=== PATIENT | female | born 2000 | race Caucasian/White ===

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

== ENCOUNTER → 2018-10-12 | Emergency (ER) | payer MEDICAID ==
[~2018-10-12] VITALS: Ht 165.1 cm; Wt 80.5 kg
[~2018-10-12] MED LIST changes: +MECLOFENAMATE100 MG PO; +MOTRIN 800800 MG/TAB PO; +NORCO 325 MG-51 TAB PO; +PERCOCET 325 MG1 TA2 PO; +ZOLOFT 50MG50 MG PO
[2018-10-12 08:33] VITALS: BP 115/73; PULSE 89; TEMP 97.6
[2018-10-12 09:30] LABS: BASO % 0.4 % (0.0-2.0); EOS # 0.1 (0.0-0.7); EOS % 1.5 % (0-4.0); GRAN # 5.4 (1.4-6.5); GRAN % 74.7 % (42.2-75.2); HEMATOCRIT 38.7 % (35.0-45.0); HEMOGLOBIN 13.1 g/dl (12.0-15.0); LYMPH # 1.2 (1.2-3.4); LYMPH % 16.5 % (20.0-51.0); MEAN CELL VOLUME 87 fl (80.0-95.0); MEAN CORPUSCULAR HEMOGLOBIN 29 pg (26.0-32.0); MEAN CORPUSCULAR HGB CONC 34 g/dl (33.0-37.0); MEAN PLATELET VOLUME 10.2 fl (7.4-10.4); MONO # 0.5 (0.1-0.6); MONO % 6.3 % (1.7-9.3); PLATELET COUNT 246 K/mm3 (130-400); RED BLOOD COUNT 4.46 M/mm3 (4.10-5.30); REDCELL DISTRIBUTION WIDTH-CV 12.9 % (11.5-14.5)
[2018-10-12 09:38] LABS: COLLECTION METHOD CLEAN CATCH
[2018-10-12 09:39] LABS: ALBUMIN 4.5 gm/dL (3.5-5.0); BILIRUBIN,TOTAL 0.9 mg/dL (0.0-1.0); CALCIUM 9.9 mg/dL (8.4-10.2); CREATININE, serum 0.66 mg/dL (0.52-1.25); POTASSIUM 4.6 mmol/L (3.4-5.0); TOTAL PROTEIN 8.2 gm/dL (6.4-8.2)
[2018-10-12 09:44] LABS: MUCOUS Present /lpf; PH 6 (5-8); SQUAMOUS EPITHELIAL 0-2 /hpf; URINE APPEARANCE Clear; URINE BACTERIA Rare /hpf; URINE BILIRUBIN Negative (NEGATIVE); URINE BLOOD Negative (NEGATIVE); URINE COLOR Straw; URINE GLUCOSE Negative (NEGATIVE); URINE KETONE Negative (NEGATIVE); URINE LEUKOCYTE ESTERASE Negative (NEGATIVE); URINE NITRATE Negative (NEGATIVE); URINE PROTEIN(semi-quant) Negative (NEGATIVE); URINE RBC 0-2 /hpf; URINE UROBILINOGEN Negative (NEGATIVE)
[2018-10-12 09:51] LABS: HCG-QUALITATIVE URINE NEGATIVE
[2018-10-12 09:56] LABS: STREP SCREEN NEGATIVE
== END ==
LOC: COL.ER 08:20 → EDBEDREQ 08:48
PROVIDERS: Physician Assistant
DX: N83.202 Unspecified ovarian cyst, left side (principal); N76.0 Acute vaginitis; Z88.0 Allergy status to penicillin
CPT/HCPCS: J1885

== ENCOUNTER 2019-06-08 22:08 | Emergency (ER) | payer MEDICAID ==
[~2019-06-08] VITALS: Ht 165.1 cm; Wt 80.5 kg
[2019-06-08 22:18] VITALS: BP 143/80; PULSE 95; TEMP 98
== END 2019-06-08 23:47 | disposition left against medical advice (07) ==
LOC: COL.ER 22:08
DX: N94.9 Unspecified condition associated with female genital organs and menstrual cycle (principal)

== ENCOUNTER 2020-01-11 13:03 | Emergency (ER) | payer MEDICAID ==
[~2020-01-11] VITALS: Ht 165.1 cm; Wt 77.3 kg
[2020-01-11 13:11] VITALS: BP 113/62; TEMP 98.1
[2020-01-11 13:34] LABS: COLLECTION METHOD CLEAN CATCH
[2020-01-11 13:47] LABS: PH 8 (5-8); SQUAMOUS EPITHELIAL 0-2 /hpf; URINE APPEARANCE Clear; URINE BACTERIA None Seen /hpf; URINE BILIRUBIN Negative (NEGATIVE); URINE BLOOD Negative (NEGATIVE); URINE COLOR Straw; URINE GLUCOSE Negative (NEGATIVE); URINE KETONE Trace (NEGATIVE); URINE LEUKOCYTE ESTERASE Negative (NEGATIVE); URINE NITRATE Negative (NEGATIVE); URINE PROTEIN(semi-quant) Negative (NEGATIVE); URINE RBC None Seen /hpf; URINE UROBILINOGEN Negative (NEGATIVE)
[2020-01-11 15:52] VITALS: PULSE 82
== END 2020-01-11 15:51 | disposition home or self-care (01) ==
LOC: COL.ER 13:03
PROVIDERS: Emergency Medicine
DX: S70.01XA Contusion of right hip, initial encounter (principal); R40.2412 Glasgow coma scale score 13-15, at arrival to emergency department; Z88.0 Allergy status to penicillin; V43.52XA Car driver injured in collision with other type car in traffic accident, initial encounter

== ENCOUNTER 2020-06-05 20:08 | Outpatient (CLI) | payer MEDICAID ==
[~2020-06-05] VITALS: Ht 162.6 cm; Wt 87.3 kg
[2020-06-05] VITALS (7 sets, daily range): BP systolic 102–108; BP diastolic 55–68; PULSE 80–107; TEMP 97.9
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
[2020-06-05] MEDS ORDERED: PRENATAL TABLET PO (21:42)
--- NOTE | 2020-06-05 23:10 | NUR ---
Discharge instructions reviewed with pt. Questions invited and answered. ambulatory off unit.
== END 2020-06-05 23:15 | disposition home or self-care (01) ==
LOC: LDR 20:08 → COL.ER 20:08 → LDRO 20:08 → EDSTATUS 20:18 → LDRO 23:15
DX: O9A.213 Injury, poisoning and certain other consequences of external causes complicating pregnancy, third trimester (principal); Z3A.36 36 weeks gestation of pregnancy; Z91.5 Personal history of self-harm
CPT/HCPCS: OP

== ENCOUNTER → 2020-06-19 | Outpatient (CLI) | payer MEDICAID ==
[~2020-06-19] MED LIST changes: +CEPHALEXIN500 M1 PO; +IBU800 M1 PO; +PRENATAL TABLET PO
== END ==
LOC: COL.LAB 08:45
DX: Z20.828 Contact with and (suspected) exposure to other viral communicable diseases (principal)

== ENCOUNTER 2020-06-22 07:07 | Inpatient (IN) | payer MEDICAID ==
[~2020-06-22] VITALS: Ht 162.6 cm; Wt 88.2 kg
[2020-06-22] VITALS (36 sets, daily range): BP systolic 73–123; BP diastolic 37–73; PULSE 63–113; TEMP 97.4–98.2
[~2020-06-22 07:07] MED LIST changes: -CEPHALEXIN500 M1 PO; -IBU800 M1 PO
--- NOTE | 2020-06-22 07:10 | NUR ---
Pt arrives on unit ambulatory with mother for IOL. Changed into clean gown. EFM and toco applied. VSS. Denies vaginal bleeding, LOF, regular ctx and reports GFM. Admission assessment completed. Consents signed. IV started in LW. Labs drawn LR infusing. Oriented to room and POC. Bed locked in low position. Call light within reach. No questions or concerns at this time.
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
[2020-06-22 08:02] LABS: BASO % 0.3 % (0.0-2.0); EOS # 0.1 (0.0-0.7); EOS % 0.4 % (0-4.0); GRAN # 8.3 (1.4-6.5); GRAN % 74.4 % (42.2-75.2); HEMOGLOBIN 11.6 g/dl (12.5-16.0); LYMPH # 2.2 (1.2-3.4); LYMPH % 19.7 % (20.0-51.0); MEAN CELL VOLUME 89 fl (80.0-100.0); MEAN CORPUSCULAR HEMOGLOBIN 30 pg (27.0-31.0); MEAN CORPUSCULAR HGB CONC 34 g/dl (33.0-37.0); MEAN PLATELET VOLUME 10.8 fl (7.4-10.4); MONO # 0.4 (0.1-0.6); MONO % 3.9 % (1.7-9.3); PLATELET COUNT 238 K/mm3 (130-400); RED BLOOD COUNT 3.83 M/mm3 (4.10-5.30)
[2020-06-22 08:20] LABS: TRICYCLIC ANTIDEPRESS URINE NEGATIVE
[2020-06-22 08:27] LABS: HEMATOCRIT 34.1 % (37.0-47.0)
--- NOTE | 2020-06-22 08:30 | NUR ---
DR TAMAYO IN AT 0828 TO CHECK ON PT AND REVIEW PLAN OF CARE. PT WANTING EPIDURAL. YENNY OSMAN CRNA, IN AT [address] EPIDURAL.
--- NOTE | 2020-06-22 08:45 | NUR ---
PT SITTING UP FOR EPIDURAL PLACEMENT. TEST DOSE AT 0840 WITH NO ABNORMAL SYMPTOMS REPORTED. PT REPOSITIONED LYING DOWN AFTER EPDIURAL PLACEMENT BY Nina OSMAN CRNA.
--- NOTE | 2020-06-22 09:00 | NUR ---
PT REPORTS SHE IS FEELING LIKE SHE IS GOING TO FAINT, BP DOWN TO 73/37, HEAD OF BED LOWERED, FLUID BOLUS STARTED.
--- NOTE | 2020-06-22 09:15 | NUR ---
EPHEDRINE 10MG GIVEN AT 09 FOR BLOOD PRESSURE, DR TAMAYO IN AT 09-SVE /-1. DR TAMAYO ORDERS PITOCIN TO BE RESTARTED AT 2MU-STARTED AT 09
--- NOTE | 2020-06-22 10:15 | NUR ---
ALEJO CATHETER PLACED AT 1007, SVE 5/-1, PT REPOSITIONED, PITOCIN TO 6MU, FHT'S WITH MODERATE VARIABILITY AND ACCELS.
--- NOTE | 2020-06-22 10:32 | NUR ---
FHT'S WITH LATE DECELERATION AFTER REPOSITIONING SO REPOSITIONED BACK TO WEDGE LEFT. CONTRACTIONS VERY DIFFICULT TO MONITOR DESPITE NUMEROUS ATTEMPTS AT REPOSITIONING TOCO MONITOR.
--- NOTE | 2020-06-22 11:45 | NUR ---
DR TAMAYO CALLED TO CHECK ON PT. PT REPORTS FEELING MORE PAIN WITH CONTRACTIONS-WILL NOTIFY NUTRITION PROFESSOR.
--- NOTE | 2020-06-22 13:00 | NUR ---
DR TAMAYO HERE AT 1248: SVE 0. PT REPOSITIONED WITH PEANUT BALL PER DR TAMAYO.
--- NOTE | 2020-06-22 13:45 | NUR ---
DR TAMAYO IN AT 1333, SVE , PT REPOSITIONED TO RIGHT SIDE WITH PEANUT BALL-FHT'S DROP WITH POSITION CHANGE, PT REPOSITIONED BACK TO LEFT SIDE WITH PEANUT BALL.
--- NOTE | 2020-06-22 14:31 | NUR ---
FHT'S WITH REPETITIVE VARIABLES TO THE 60'S, PT REPOSITIONED LEFT LATER WITH NO IMPROVEMENT, DR TAMAYO IN AT 1419-SVE /+2, REPOSITIONED AGAIN TO SEMI FOWLERS WITH IMPROVEMENT. SAPNA REMOVED AT 1420.
--- NOTE | 2020-06-22 15:00 | NUR ---
PT CALLS AT 1455 REPORTING FEELING RECTAL PRESSURE, DR TAMAYO IN AT 1455 WITH THIS RN, SVE WITH COMPLETE DILATION, PT PREPPED AND POSITIONED. PUSHES ONE TIME AND OF FEMALE INFANT AT 1458. STRAIGHT CATHETERIZED AFTER DELIVERY OF WITH 100CC URINE RETURNED. PITOCIN TURNED OFF AFTER DELIVERY OF . SPONTANEOUS DELIVERY OF PLACENTA AT 1500. PERINEUM INTACT. PITOCIN ON AT 333ML/HR AFTER DELIVERY OF PLACENTA. FUNDAL MASSAGE PERFORMED WITH FUNDUS FIRM AND MODERATE FREE FLOW BLEEDING OBSERVED.
--- NOTE | 2020-06-22 15:15 | NUR ---
MODERATE FREE FLOW BLEEDING WITH FUNDAL MASSAGE, GOLF BALL SIZE CLOTS EXPRESSED WITH MASSAGE, DR TAMAYO IN TO ASSESS AND REPORTS SHE THINKS EVERYTHING LOOKS GOOD. AFTER EXPRESSION OF CLOTS, BLEEDING SLOWS DOWN.
--- NOTE | 2020-06-22 16:30 | NUR ---
PT WANTING TO GET UP AND TRANSFER TO ROOM. EPIDURAL CATHETER REMOVED WITH TIP INTACT. BANDAID APPLIED TO SITE. IV TO INT. PT AMBULATES WITHOUT DIFFICULTY TO BATHROOM. VOIDS 200CC. PERICARE PERFORMED. NEW LUCAS PAD AND GOWN IN PLACE. AMBULATES TO NURSERY TO WATCH BABY BATH.
[2020-06-23 03:00] VITALS: BP 112/68; PULSE 89; TEMP 97.1
[2020-06-23 07:15] VITALS: BP 105/55; PULSE 85; TEMP 97.7
[2020-06-23] MEDS ORDERED: IBU800 M1 PO (10:14)
--- NOTE | 2020-06-23 13:04 | NUR ---
SW recieved consult for patient. SW's met with patient about basic needs and consult. Patient reports that she resides in [place] with her Mother Rosie Lima ([phone] Patient reports her contact information is [phone]. Patient reports that her address is [address] [place] [id number]. Patient reports that she has a two year old son who is living with the father in [facility]. Patient denies being on any DCF reports. Patient reports that she is working on custody as the eldest FOB has temporary living orders. Patient reports that her PCP is Dr. Aiken at [facility] in . Patient reports that her OB is Dr. Audra Burleson who may also be the christopher Singh's doctore. Patient reports that she has supplies for baby and is wanting to breast feed but forget her information for a pump though her state insurance. Patient reports that she has the resources the pump. Patient reports that she has a car seat and transportation. Patient and SW discussed patient MH HX and concerns about her depression and anxiety. Patient reports that she has a counselor at [facility] and has not seen her due covid. Patient was given resources and given packets for support. Patient was encouraged to reach out for MH stabilization if she is feeling any concerns. Patient gave permission to talk infront of patient's mother. Follow-up recommened to support patient in setting up and appointment with a[facility].
[2020-06-23 16:30] VITALS: BP 116/61; PULSE 78; TEMP 98.5
[2020-06-23 19:05] VITALS: BP 118/62; PULSE 77; TEMP 97.9
[2020-06-24 08:18] VITALS: BP 115/64; PULSE 86; TEMP 97.5
[2020-06-24] MEDS ORDERED: PERCOCET 325 MG1 TA2 PO (08:47)
--- NOTE | 2020-06-24 09:13 | NUR ---
Initial visit; Patient thanked Order Processing Clerk for offering congratulations for the of her daughter and thanking her for choosing [facility].
--- NOTE | 2020-06-24 11:14 | NUR ---
sort line worker spoke with patient's nurse and confirmed that she will make an appointment at [facility] in [place] upon patient's discharge.
--- NOTE | 2020-06-24 14:27 | NUR ---
Patient discharge instructions reviewed with her and mother. Script for percocet given and explained. Patient verbalizes understanding.
[2020-06-25] MEDS ORDERED: CEPHALEXIN500 M1 PO (23:35)
== END 2020-06-24 15:00 | disposition home or self-care (01) | DRG 807 ==
LOC: LDR 07:07 → OB 07:07
PROVIDERS: ADMIT Obstetrics & Gynecology
PROC: 10907ZC Drainage of Amniotic Fluid, Therapeutic from Products of Conception, Via Natural or Artificial Opening (ICD-10-PCS; principal; 2020-06-22)
PROC: 10E0XZZ Delivery of Products of Conception, External Approach (ICD-10-PCS; 2020-06-22)
DX: O99.824 Streptococcus B carrier state complicating childbirth (principal); Z37.0 Single live birth; O99.02 Anemia complicating childbirth; D64.9 Anemia, unspecified; O99.344 Other mental disorders complicating childbirth; F32.9 Major depressive disorder, single episode, unspecified; F41.9 Anxiety disorder, unspecified; Z3A.39 39 weeks gestation of pregnancy
CPT/HCPCS: J2590; J2795; J3370; J7050; J7120

== ENCOUNTER 2020-06-25 21:41 | Emergency (ER) | payer MEDICAID ==
[~2020-06-25] VITALS: Ht 165.1 cm; Wt 88.2 kg
[~2020-06-25 21:41] MED LIST changes: +IBU800 M1 PO
[2020-06-25 22:27] VITALS: TEMP 98.4
[2020-06-25 22:50] LABS: COLLECTION METHOD CLEAN CATCH
[2020-06-25 22:56] LABS: BASO % 0.4 % (0.0-2.0); EOS # 0.2 (0.0-0.7); GRAN # 7.2 (1.4-6.5); GRAN % 68.5 % (42.2-75.2); LYMPH # 2.5 (1.2-3.4); LYMPH % 23.4 % (20.0-51.0); MEAN CELL VOLUME 90 fl (80.0-100.0); MEAN CORPUSCULAR HEMOGLOBIN 30 pg (27.0-31.0); MEAN CORPUSCULAR HGB CONC 33 g/dl (33.0-37.0); MEAN PLATELET VOLUME 10.5 fl (7.4-10.4); MONO # 0.5 (0.1-0.6); MONO % 4.3 % (1.7-9.3); PLATELET COUNT 247 K/mm3 (130-400); RED BLOOD COUNT 3.69 M/mm3 (4.10-5.30)
[2020-06-25 22:59] LABS: MUCOUS Present /lpf; PH 7 (5-8); URINE APPEARANCE Hazy; URINE BACTERIA None Seen /hpf; URINE BILIRUBIN Negative (NEGATIVE); URINE BLOOD 3+ (NEGATIVE); URINE COLOR Yellow; URINE GLUCOSE Negative (NEGATIVE); URINE KETONE Negative (NEGATIVE); URINE LEUKOCYTE ESTERASE 2+ (NEGATIVE); URINE NITRATE Negative (NEGATIVE); URINE PROTEIN(semi-quant) Negative (NEGATIVE); URINE RBC >50 /hpf; URINE UROBILINOGEN Negative (NEGATIVE)
[2020-06-25 23:00] LABS: HEMATOCRIT 33.2 % (37.0-47.0)
[2020-06-25 23:11] LABS: ALBUMIN 3.6 gm/dL (3.5-5.0); BILIRUBIN,TOTAL 0.4 mg/dL (0.0-1.0); CALCIUM 9.1 mg/dL (8.4-10.2); CREATININE, serum 0.52 (0.52-1.25); POTASSIUM 4.3 mmol/L (3.4-5.0); TOTAL PROTEIN 7.2 gm/dL (6.4-8.2)
[2020-06-25] MEDS ORDERED: CEPHALEXIN500 M1 PO (23:35)
[2020-06-25 23:45] VITALS: BP 115/71; PULSE 85
== END 2020-06-25 23:45 | disposition home or self-care (01) ==
LOC: COL.ER 21:41
PROVIDERS: Nurse Practitioner Primary Care
DX: R60.0 Localized edema (principal); N39.0 Urinary tract infection, site not specified; F32.9 Major depressive disorder, single episode, unspecified; F41.9 Anxiety disorder, unspecified; F17.210 Nicotine dependence, cigarettes, uncomplicated

== ENCOUNTER 2021-02-11 20:54 | Emergency (ER) | payer MEDICAID ==
[~2021-02-11] VITALS: Ht 165.1 cm; Wt 75.0 kg
[~2021-02-11 20:54] MED LIST changes: +CEPHALEXIN500 M1 PO
[2021-02-11 21:04] VITALS: TEMP 97.8
[2021-02-11 21:54] LABS: BASO # 0.1 (0.0-0.2); BASO % 0.6 % (0.0-2.0); EOS # 0.1 (0.0-0.7); GRAN # 5.7 (1.4-6.5); GRAN % 66.6 % (42.2-75.2); HEMOGLOBIN 14.1 g/dl (12.5-16.0); LYMPH # 2.2 (1.2-3.4); LYMPH % 25.8 % (20.0-51.0); MEAN CELL VOLUME 88 fl (80.0-100.0); MEAN CORPUSCULAR HEMOGLOBIN 30 pg (27.0-31.0); MEAN CORPUSCULAR HGB CONC 34 g/dl (33.0-37.0); MEAN PLATELET VOLUME 9.9 fl (7.4-10.4); MONO # 0.5 (0.1-0.6); MONO % 5.7 % (1.7-9.3); PLATELET COUNT 353 K/mm3 (130-400); RED BLOOD COUNT 4.78 M/mm3 (4.10-5.30); REDCELL DISTRIBUTION WIDTH-CV 13.4 % (11.5-14.5)
[2021-02-11 21:59] LABS: COLLECTION METHOD CLEAN CATCH
[2021-02-11 22:09] LABS: ALANINE AMINOTRANSFERASE 36 U/L (4-34); ALBUMIN 5.1 gm/dL (3.5-5.0); ALKALINE PHOSPHATASE 82 U/L (50-136); ANION GAP 13 mmol/L (7-16); AST,SGOT 36 U/L (15-37); BLOOD UREA NITROGEN 14 mg/dL (7-17); CALCIUM 10.1 mg/dL (8.4-10.2); CARBON DIOXIDE 24 mmol/L (22-30); CHLORIDE 103 mmol/L (98-107); CREATININE, serum 0.84 (0.52-1.25); GLUCOSE 95 mg/dL (74-106); POTASSIUM 3.8 mmol/L (3.4-5.0); SODIUM 140 mmol/L (137-145); TOTAL PROTEIN 8.9 gm/dL (6.4-8.2)
[2021-02-11 22:10] LABS: PH 7 (5-8); SQUAMOUS EPITHELIAL 0-2 /hpf; URINE APPEARANCE Hazy; URINE BACTERIA None Seen /hpf; URINE BILIRUBIN Negative (NEGATIVE); URINE BLOOD Negative (NEGATIVE); URINE COLOR Yellow; URINE GLUCOSE Negative (NEGATIVE); URINE KETONE Negative (NEGATIVE); URINE LEUKOCYTE ESTERASE Negative (NEGATIVE); URINE NITRATE Negative (NEGATIVE); URINE PROTEIN(semi-quant) Negative (NEGATIVE); URINE RBC 0-2 /hpf; URINE UROBILINOGEN Negative (NEGATIVE)
[2021-02-11 22:11] LABS: ACETAMINOPHEN < 10 ug/mL (10-30); ALCOHOL(ethanol),MEDICAL < 10 mg/dL; SALICYLATE < 1.0 mg/dL
[2021-02-11 22:23] LABS: TRICYCLIC ANTIDEPRESS URINE NEGATIVE
[2021-02-12 05:10] VITALS: BP 120/65; PULSE 80
== END 2021-02-12 05:15 ==
LOC: COL.ER 20:54
PROVIDERS: Family Medicine
DX: F32.9 Major depressive disorder, single episode, unspecified (principal); Z88.0 Allergy status to penicillin

== ENCOUNTER 2021-11-21 18:02 | Emergency (ER) | payer SELFPAY ==
[~2021-11-21] VITALS: Ht 165.1 cm; Wt 90.9 kg
[2021-11-21 18:09] VITALS: TEMP 97.2
[2021-11-21 18:33] LABS: COLLECTION METHOD CLEAN CATCH
[2021-11-21 18:38] LABS: MUCOUS Present (NOT PRESENT); PH 7 (5-8); SQUAMOUS EPITHELIAL 0-2 /hpf (0-10); URINE APPEARANCE Clear (CLEAR/HAZY); URINE BACTERIA None Seen /hpf (NONE SEEN); URINE BILIRUBIN Negative (NEGATIVE); URINE BLOOD 3+ (NEGATIVE); URINE COLOR Yellow (YELLOW); URINE GLUCOSE Negative (NEGATIVE); URINE KETONE Trace (NEGATIVE); URINE LEUKOCYTE ESTERASE Negative (NEGATIVE); URINE NITRATE Negative (NEGATIVE); URINE PROTEIN(semi-quant) Negative (NEGATIVE); URINE RBC 20-50 /hpf (0-2); URINE UROBILINOGEN Negative (NEGATIVE)
[2021-11-21] MEDS ORDERED: FLAGYL500 MG PO (20:05)
[2021-11-21 20:13] VITALS: BP 122/68; PULSE 81
== END 2021-11-21 20:13 | disposition home or self-care (01) ==
LOC: COL.ER 18:02
PROVIDERS: Nurse Practitioner
DX: N76.0 Acute vaginitis (principal); G89.29 Other chronic pain; M54.9 Dorsalgia, unspecified; Z79.891 Long term (current) use of opiate analgesic

== ENCOUNTER 2022-01-06 20:23 | Emergency (ER) | payer MEDICAID ==
[~2022-01-06] VITALS: Ht 165.1 cm; Wt 84.5 kg
[~2022-01-06 20:23] MED LIST changes: +FLAGYL500 MG PO
[2022-01-06 20:34] VITALS: TEMP 98
[2022-01-06] MEDS ORDERED: NORCO 325 MG-51 TAB PO (21:52)
[2022-01-06] MEDS ORDERED: MEDROL 4MG DOSPA4 MG PO (21:52)
[2022-01-06 22:08] VITALS: BP 108/71; PULSE 88
== END 2022-01-06 22:08 | disposition home or self-care (01) ==
LOC: COL.ER 20:23
DX: G89.29 Other chronic pain (principal); M54.50 Low back pain, unspecified; Z79.891 Long term (current) use of opiate analgesic
CPT/HCPCS: J1885

== ENCOUNTER → 2022-04-14 | Outpatient (CLI) | payer MEDICAID ==
[~2022-04-14] MED LIST changes: +MEDROL 4MG DOSPA4 MG PO
== END ==
LOC: MHCPAIN 11:06
DX: M51.26 Other intervertebral disc displacement, lumbar region (principal); M53.3 Sacrococcygeal disorders, not elsewhere classified; M54.50 Low back pain, unspecified
CPT/HCPCS: G0463

== ENCOUNTER 2022-06-06 16:06 | Emergency (ER) | payer MEDICAID ==
[~2022-06-06] VITALS: Ht 165.1 cm; Wt 82.7 kg
[2022-06-06 16:12] VITALS: TEMP 97.9
[2022-06-06 16:53] LABS: COLLECTION METHOD CLEAN CATCH
[2022-06-06 16:56] LABS: BASO # 0.1 K/mm3 (0.0-0.2); BASO % 0.5 % (0.0-2.0); EOS # 0.1 K/mm3 (0.0-0.7); EOS % 0.8 % (0.0-4.0); GRAN # 7.2 K/mm3 (1.4-6.5); GRAN % 72.6 % (42.2-75.2); HEMATOCRIT 41.8 % (37.0-47.0); HEMOGLOBIN 13.9 g/dl (12.5-16.0); LYMPH # 2.1 K/mm3 (1.2-3.4); LYMPH % 20.8 % (20.0-51.0); MEAN CELL VOLUME 91 fl (80.0-100.0); MEAN CORPUSCULAR HEMOGLOBIN 30 pg (27-31); MEAN CORPUSCULAR HGB CONC 33 g/dl (33.0-37.0); MONO # 0.5 K/mm3 (0.1-0.6); MONO % 5.1 % (1.7-9.3); PLATELET COUNT 306 K/mm3 (130-400); RED BLOOD COUNT 4.58 M/mm3 (4.10-5.30); REDCELL DISTRIBUTION WIDTH-CV 12.4 % (11.5-14.5)
[2022-06-06 17:01] LABS: MUCOUS Present (NOT PRESENT); PH 6 (5-8); SQUAMOUS EPITHELIAL 0-2 /hpf (0-10); URINE APPEARANCE Clear (CLEAR/HAZY); URINE BACTERIA None Seen /hpf (NONE SEEN); URINE BILIRUBIN Negative (NEGATIVE); URINE BLOOD Negative (NEGATIVE); URINE COLOR Yellow (YELLOW); URINE GLUCOSE Negative (NEGATIVE); URINE KETONE 2+ (NEGATIVE); URINE LEUKOCYTE ESTERASE Negative (NEGATIVE); URINE NITRATE Negative (NEGATIVE); URINE PROTEIN(semi-quant) Negative (NEGATIVE); URINE RBC 0-2 /hpf (0-2); URINE UROBILINOGEN Negative (NEGATIVE)
[2022-06-06 17:18] LABS: ALBUMIN 4.2 gm/dL (3.5-5.0); BILIRUBIN,TOTAL 0.9 mg/dL (0.2-1.2); CALCIUM 9.6 mg/dL (8.4-10.2); CREATININE, serum 0.68 mg/dL (0.57-1.11); POTASSIUM 3.6 mmol/L (3.5-4.5); TOTAL PROTEIN 8.1 gm/dL (6.2-8.1)
[2022-06-06 18:11] VITALS: BP 109/66; PULSE 82
== END 2022-06-06 18:13 | disposition home or self-care (01) ==
LOC: COL.ER 16:06
PROVIDERS: Physician Assistant
DX: O26.891 Other specified pregnancy related conditions, first trimester (principal); R10.2 Pelvic and perineal pain; O99.331 Smoking (tobacco) complicating pregnancy, first trimester; F17.210 Nicotine dependence, cigarettes, uncomplicated; Z3A.08 8 weeks gestation of pregnancy
CPT/HCPCS: J2765; J7030

== ENCOUNTER 2022-07-09 19:44 | Emergency (ER) | payer MEDICAID ==
[~2022-07-09] VITALS: Ht 165.1 cm; Wt 80.4 kg
[2022-07-09 19:47] VITALS: TEMP 98.1
[2022-07-09 20:21] LABS: COLLECTION METHOD CLEAN CATCH
[2022-07-09 20:25] LABS: BASO % 0.5 % (0.0-2.0); EOS # 0.1 K/mm3 (0.0-0.7); EOS % 1.4 % (0.0-4.0); GRAN # 4.8 K/mm3 (1.4-6.5); GRAN % 59.9 % (42.2-75.2); HEMATOCRIT 38.3 % (37.0-47.0); HEMOGLOBIN 13.5 g/dl (12.5-16.0); LYMPH # 2.5 K/mm3 (1.2-3.4); LYMPH % 31.7 % (20.0-51.0); MEAN CELL VOLUME 88 fl (80.0-100.0); MEAN CORPUSCULAR HEMOGLOBIN 31 pg (27-31); MEAN CORPUSCULAR HGB CONC 35 g/dl (33.0-37.0); MEAN PLATELET VOLUME 9.7 fl (7.4-10.4); MONO # 0.5 K/mm3 (0.1-0.6); PLATELET COUNT 297 K/mm3 (130-400); RED BLOOD COUNT 4.36 M/mm3 (4.10-5.30); REDCELL DISTRIBUTION WIDTH-CV 11.9 % (11.5-14.5)
[2022-07-09 20:31] LABS: SQUAMOUS EPITHELIAL 0-2 /hpf (0-10); URINE BACTERIA Rare /hpf (NONE SEEN); URINE RBC None Seen /hpf (0-2)
[2022-07-09 20:33] LABS: PH 6.5 (5.0-8.5); URINE APPEARANCE Clear (CLEAR/HAZY); URINE BLOOD Negative (NEGATIVE); URINE COLOR Yellow (YELLOW); URINE GLUCOSE Negative (NEGATIVE); URINE KETONE Negative (NEGATIVE); URINE NITRATE Negative (NEGATIVE); URINE PROTEIN(semi-quant) Negative (NEGATIVE); URINE UROBILINOGEN 0.2 E.U/dL (0.2-1.0)
[2022-07-09 20:43] LABS: ALBUMIN 3.9 gm/dL (3.5-5.0); BILIRUBIN,TOTAL 0.7 mg/dL (0.2-1.2); CALCIUM 9.7 mg/dL (8.4-10.2); CREATININE, serum 0.65 mg/dL (0.57-1.11); POTASSIUM 3.7 mmol/L (3.5-4.5)
[2022-07-09 21:07] LABS: C-REACTIVE PROTEIN 1.36 mg/dL (0.00-0.50)
[2022-07-09] MEDS ORDERED: PREDNISONE20 MG PO (22:35)
[2022-07-09] MEDS ORDERED: CLEOCIN HCL300 MG PO (22:35)
[2022-07-09] MEDS ORDERED: ZOFRAN ODT4 MG PO (22:35)
[2022-07-09 22:57] VITALS: BP 101/61; PULSE 94
== END 2022-07-09 22:58 | disposition home or self-care (01) ==
LOC: COL.ER 19:44
PROVIDERS: Emergency Medicine
DX: O99.511 Diseases of the respiratory system complicating pregnancy, first trimester (principal); J45.901 Unspecified asthma with (acute) exacerbation; O99.810 Abnormal glucose complicating pregnancy; E16.2 Hypoglycemia, unspecified; O99.331 Smoking (tobacco) complicating pregnancy, first trimester; F17.210 Nicotine dependence, cigarettes, uncomplicated; Z3A.12 12 weeks gestation of pregnancy; Z20.822 Contact with and (suspected) exposure to COVID-19
CPT/HCPCS: J2550; J7030; J7512

== ENCOUNTER 2023-01-22 19:47 | Outpatient (CLI) | payer OTHER, MEDICAID ==
[~2023-01-22] VITALS: Ht 165.1 cm; Wt 93.6 kg
[~2023-01-22 19:47] MED LIST changes: +CLEOCIN HCL300 MG PO; +PREDNISONE20 MG PO; +PROFE180 MG PO; +TYLENOL 325MG325 MG PO
--- NOTE | 2023-01-22 19:55 | NUR ---
PT TO UNIT AMBULATORY WITH SPOUSE WITH CONCERNS OF BLOODY DISCHARGE AT HOME. PT STATES THAT DISCHARGE IS PINK, BROWN, OR AT TIMES BRIGHT RED. STATES IT HAS NOT BEEN ENOUGH THAT SHE HAS SATURATED PADS OR UNDERWEAR BUT SHE NOTICES IT WHEN SHE WIPES. PT ORIENTED TO ROOM, CHANGED INTO GOWN, EFMX 2 APPLIED, VS OBTAINED. NO ACTIVE BLEEDING VISUALIZED. SVE PERFORMED.
[2023-01-22 20:30] VITALS: BP 106/57; PULSE 82
[2023-01-22 21:00] VITALS: BP 107/59; PULSE 88
[2023-01-22 21:30] VITALS: BP 110/60; PULSE 87
--- NOTE | 2023-01-22 21:30 | NUR ---
PT MAY DC HOME PER DR. CLEVELAND. MONITORING DC'D AT THIS TIME. PT TO CHANGE INTO OWN CLOTHES WHILE DISCHARGE PAPERWORK PREPARED.
--- NOTE | 2023-01-22 21:55 | NUR ---
DISCHARGE INSTRUCTIONS REVIEWED WITH PT AND SPOUSE. PT TO RETURN TO UNIT IF HER WATER BREAKS, SHE HAS CONSISTENT PAINFUL CONTRACTIONS, OR SHE HAS VAGINAL BLEEDING LIKE A PERIOD OR WITH CLOTS. QUESTIONS ENCOURGED AND ANSWERED, UNDERSTANDING VERBALIZED. PT OFF UNIT AMBULATORY WITH SPOUSE.
== END 2023-01-22 21:55 | disposition home or self-care (01) ==
LOC: LDRO 19:47
DX: O99.891 Other specified diseases and conditions complicating pregnancy (principal); Z3A.39 39 weeks gestation of pregnancy

== ENCOUNTER 2023-01-24 06:57 | Inpatient (IN) | payer OTHER, MEDICAID ==
[2023-01-24] VITALS (22 sets, daily range): BP systolic 86–133; BP diastolic 38–79; PULSE 84–115; TEMP 97.4–98.2
[~2023-01-24] VITALS: Ht 165.1 cm; Wt 93.6 kg
--- NOTE | 2023-01-24 07:05 | NUR ---
PT AMBULATORY TO LR4. PT CHANGED INTO CLEAN GOWN. FHR MONITOR/TOCO APPLIED. PT CAME IN COMPLAINING OF CONTRACTIONS. PT DENIES ANY VAGINAL BLEEDING, LEAKING OF FLUID, OR DECREASED MOVEMENT. THIS RN DISCUSSES PLAN OF CARE. PT VERBALIZES UNDERSTANDING.
[2023-01-24 08:06] LABS: BASO # 0.1 K/mm3 (0.0-0.2); BASO % 0.3 % (0.0-2.0); EOS % 0.1 % (0.0-4.0); GRAN # 14.7 K/mm3 (1.4-6.5); GRAN % 86.7 % (42.2-75.2); HEMOGLOBIN 11.6 g/dl (12.5-16.0); LYMPH # 1.4 K/mm3 (1.2-3.4); LYMPH % 8.3 % (20.0-51.0); MEAN CELL VOLUME 87 fl (80.0-100.0); MEAN CORPUSCULAR HEMOGLOBIN 30 pg (27-31); MEAN CORPUSCULAR HGB CONC 35 g/dl (33.0-37.0); MEAN PLATELET VOLUME 10.4 fl (7.4-10.4); MONO # 0.6 K/mm3 (0.1-0.6); MONO % 3.7 % (1.7-9.3); PLATELET COUNT 203 K/mm3 (130-400); RED BLOOD COUNT 3.83 M/mm3 (4.10-5.30); REDCELL DISTRIBUTION WIDTH-CV 13.8 % (11.5-14.5)
[2023-01-24 08:07] LABS: HEMATOCRIT 33.4 % (37.0-47.0)
[2023-01-24 08:23] LABS: BILIRUBIN,TOTAL 0.6 mg/dL (0.2-1.2); CALCIUM 9.6 mg/dL (8.4-10.2); CREATININE, serum 0.64 mg/dL (0.57-1.11); POTASSIUM 3.7 mmol/L (3.5-4.5); TOTAL PROTEIN 7.4 gm/dL (6.2-8.1)
[2023-01-24 09:59] LABS: TRICYCLIC ANTIDEPRESS URINE NEGATIVE
--- NOTE | 2023-01-24 11:45 | NUR ---
1120 SVE BY THIS RN /+1. ALEJO REMOVED 550CC NOTED. 1128 NURSERY RN Rico MENDOZA CALLED IN. 1130 WELT CUTTER Samantha SINGH CALLED IN. 1130 PT BEGINS PUSHING WITH CONTRACTIONS AND COACHING BY THIS RN. DR GUILLEN, Rico MENDOZA RN, Melissa SINGH RN, AND PA STUDENT ALL IN ROOM FOR DELIVERY. FOB AND MOTHER OF PT HAD HEAD OF BEAD FOR DELIVERY. 1133 SPONTANEOUS VAGINAL DELIVERY OF VIABLE MALE . BULB SUCTIONED AND STIMULATED. INFANT TO MOTHER'S ABDOMEN. Rico MENDOZA RN TAKES OVER CARE OF . CORD CLAMPED BY DR GUILLEN AND CUT BY FOB. 1136 SPONTANEOUS DELIVERY OF PLACENTA. PITOCIN BOLUS STARTED PER PROTOCOL. CORD BLOOD COLLECTED AND SENT TO LAB. DR GUILLEN NOTES NO LACERATIONS, PT INTACT. FUNDAL MASSAGE DONE. FIRM/MIDLINE. SMAL AMT OF BLEEDING NOTED. PT REPOSITIONED. LUCAS CARE DONE. CLEAN PAD PLACED. PLAN OF CARE AND SAFETY PRECAUTIONS DISCUSSED. PT VERBALIZES UNDERSTANDING. CALL LIGHTIN WITHIN REACH. FAMILY MEMBERS AT BEDSIDE.
--- NOTE | 2023-01-24 12:27 | NUR ---
[id number] DR GUILLEN ON UNIT. REVIEWING PLAN OF CARE AND ASSESING FHR MONITOR INTERMITTENTLY.
[2023-01-24] MEDS ORDERED: MOTRIN 800800 MG/TAB PO (13:14)
--- NOTE | 2023-01-24 14:00 | NUR ---
THIS RN HELPS PT TO SIT UP ON SIDE OF BED. EPIDURAL CATHETER REMOVED. THIS TEXTILE MACHINERY INSTRUCTOR PT TO BATHROOM USING SARASTEADY. PT VOIDS 100CC. PERICARE DONE. GOWN CHANGED. CLEAN PAD AND UNDERWEAR PLACED. THIS TEXTILE MACHINERY INSTRUCTOR PT IN WHEELCHAIR TO NURSERY.
--- NOTE | 2023-01-24 15:00 | NUR ---
THIS SIGNAL CIRCUIT DESIGNER PT IN WHEELCHAIR FROM NURSERY TO 207. PT ORIENTED TO ROOM. PLAN OF CARE DISCUSSED. PT VERBALIZES UNDERSTANDING. CALL LIGHT WITHIN REACH
[2023-01-25 01:07] VITALS: BP 119/73; PULSE 84; TEMP 97.8
[2023-01-25 05:16] VITALS: BP 120/75; PULSE 82; TEMP 98
[2023-01-25 08:15] VITALS: BP 125/82; PULSE 79; TEMP 98.5
--- NOTE | 2023-01-25 09:21 | NUR ---
SW responded to consult. The patient has a history of anxiety, depression, a suicide attempt, and smoking marijuana. The patient's UDS also came back positive for methamphetamines. SW staffed with the patient's RN. The patient's RN reports that the patient UDS was taken after the patient received her epidural. The RN and doctor believe the UDS is positive, because of the epidural. The patient's RN reports that they have no concerns about this, but they will send the baby's cord blood in. KIMBERLEE's met with the patient and her (father of baby), Mauri Baird (ph#[phone]). The patient lives in [place] with Mauri and their 2-year-old daughter, Blade. Rach shares that Mauri is in the and he is their source of income. She states that they are already on WIC and have a carseat and crib/bassinet for baby. SW addressed the patient's history of mental health. The patient shares that she had undiagnosed ADHD and was struggling with this, which led to the suicide attempt. She states that she is established and seeing a therapist at [facility] in [place]. She was just switched to a new therapist, Bozena. She states that she was suppose to have a telehealth visit with Bozena today, but due to just having the baby [facility], she plans to reschedule the appointment. KIMBERLEE then addressed the history of marijuana use. The patient shares that she was dealing with nausea in the first trimester. She admits to taking a couple of hits of a blunt to help with this to to be able to eat. Once she had an appetite she would stop and then quit cold turkey in the first trimester. The patient reports no concerns about using marijuana again. The patient and her had no concerns for SW. KIMBERLEE updated the patient's RN. The baby's cord blood is pending. KIMBERLEE made a CPS report. Intake ID#[id number].
--- NOTE | 2023-01-25 09:37 | NUR ---
Initial visit; Parents thanked Tour Driver for offering congratulations and God's blessings fosr the of their son. pm head cook thanked family for choosing [facility].
[2023-01-25 14:20] VITALS: BP 127/72; PULSE 88; TEMP 98.4
[2023-01-25 19:30] VITALS: BP 113/72; PULSE 116; TEMP 97.7
--- NOTE | 2023-01-26 08:10 | NUR ---
0745 PT SLEEPING AT THIS TIME. NO MEDS DUE. INFANT ASLEEP AND FED WITH IN 2 HOURS AGO.
[2023-01-26 08:59] VITALS: BP 119/58; PULSE 74; TEMP 97.4
--- NOTE | 2023-01-26 14:55 | NUR ---
DISCHAGE INSTRUCTIONS EXPLAINED TO PATIENT. PATIENT VERBALIZES UNDERSTANDING TO GO TO FOLLOW UP APPOINTMENTS OR CALL WITH QUESTIONS. PATIENT ESCORTED OFF UNIT BY THIS RN. INFANT CARRIER STRAPS CHECKED BY RN AND INFORMED PATIENT OF CORRECT TIGHTENING. PATIENT AMBULATORY OFF UNIT ACCOMPANIES BY HER MOM AND BOYFRIEND, WELL RN. PATIENT SIGNIFICANT OTHER PLACES CAR SEAT INTO THE BASE IN THE VEHICLE AND SNAPS INTO BASE. PATIENT STABLE WITHOUT COMPLAINTS AT THIS TIME.
== END 2023-01-26 14:55 | disposition home or self-care (01) | DRG 807 ==
LOC: LDRO 06:57 → LDR 07:49 → OB 07:49
PROVIDERS: Obstetrics & Gynecology; ADMIT Obstetrics & Gynecology
PROC: 10E0XZZ Delivery of Products of Conception, External Approach (ICD-10-PCS; principal; 2023-01-24)
DX: O24.420 Gestational diabetes mellitus in childbirth, diet controlled (principal); Z37.0 Single live birth; O99.892 Other specified diseases and conditions complicating childbirth; M51.36 Other intervertebral disc degeneration, lumbar region; O99.343 Other mental disorders complicating pregnancy, third trimester; F41.9 Anxiety disorder, unspecified; F32.A Depression, unspecified; O99.613 Diseases of the digestive system complicating pregnancy, third trimester; K21.9 Gastro-esophageal reflux disease without esophagitis; Z3A.39 39 weeks gestation of pregnancy; Z87.891 Personal history of nicotine dependence
CPT/HCPCS: J2590; J2795; J7120

== ENCOUNTER 2023-04-09 18:37 | Emergency (ER) | payer OTHER, MEDICAID ==
[~2023-04-09] VITALS: Ht 165.1 cm; Wt 90.6 kg
[2023-04-09 18:42] VITALS: TEMP 98.3
[2023-04-09] MEDS ORDERED: CLEOCIN HCL300 MG PO (18:55)
[2023-04-09] MEDS ORDERED: NORCO 325 MG-51 TAB PO (18:56)
[2023-04-09 19:00] VITALS: BP 145/78; PULSE 76
== END 2023-04-09 19:05 | disposition home or self-care (01) ==
LOC: COL.ER 18:37
DX: K08.89 Other specified disorders of teeth and supporting structures (principal); Z88.0 Allergy status to penicillin

== ENCOUNTER 2023-12-25 19:26 | Emergency (ER) | payer MEDICAID ==
[~2023-12-25] VITALS: Ht 165.1 cm; Wt 85.0 kg
[2023-12-25 19:32] VITALS: TEMP 97.7
[2023-12-25] MEDS ORDERED: LR 1,000 ML IV ONE (19:45)
[2023-12-25 20:01] LABS: COLLECTION METHOD CLEAN CATCH
[2023-12-25 20:09] LABS: URINE APPEARANCE Clear (CLEAR/HAZY); URINE COLOR Yellow (YELLOW); URINE PROTEIN(semi-quant) Negative (NEGATIVE)
[2023-12-25 20:10] LABS: URINE GLUCOSE Negative (NEGATIVE); URINE KETONE Negative (NEGATIVE)
[2023-12-25 20:11] LABS: URINE BLOOD 2+ (NEGATIVE); URINE NITRATE Negative (NEGATIVE); URINE RBC 0-2 /hpf (0-2); URINE UROBILINOGEN 0.2 E.U/dL (0.2-1.0)
[2023-12-25 20:12] LABS: BASO # 0.1 K/mm3 (0.0-0.2); BASO % 0.9 % (0.0-2.0); EOS # 0.1 K/mm3 (0.0-0.7); EOS % 1.1 % (0.0-4.0); GRAN # 3.6 K/mm3 (1.4-6.5); GRAN % 56.2 % (42.2-75.2); HEMATOCRIT 45.8 % (37.0-47.0); HEMOGLOBIN 15.7 g/dl (12.5-16.0); LYMPH # 2.3 K/mm3 (1.2-3.4); LYMPH % 36.6 % (20.0-51.0); MEAN CELL VOLUME 90 fl (80.0-100.0); MEAN CORPUSCULAR HEMOGLOBIN 31 pg (27-31); MEAN CORPUSCULAR HGB CONC 34 g/dl (33.0-37.0); MEAN PLATELET VOLUME 10.3 fl (7.4-10.4); MONO # 0.3 K/mm3 (0.1-0.6); MONO % 4.9 % (1.7-9.3); PLATELET COUNT 318 K/mm3 (130-400); RED BLOOD COUNT 5.12 M/mm3 (4.10-5.30); REDCELL DISTRIBUTION WIDTH-CV 12.7 % (11.5-14.5)
[2023-12-25 20:38] LABS: ALANINE AMINOTRANSFERASE 16 U/L (0-55); ALKALINE PHOSPHATASE 82 U/L (40-150); ANION GAP 13 mmol/L (7-16); AST,SGOT 23 U/L (5-34); BILIRUBIN,TOTAL 0.8 mg/dL (0.2-1.2); BLOOD UREA NITROGEN 12 mg/dL (7-19); CALCIUM 10.1 mg/dL (8.4-10.2); CARBON DIOXIDE 20 mmol/L (22-29); CHLORIDE 106 mmol/L (98-107); CREATININE, serum 0.77 mg/dL (0.57-1.11); GLUCOSE 77 mg/dL (70-99); POTASSIUM 3.9 mmol/L (3.5-4.5); SODIUM 139 mmol/L (136-145); TOTAL PROTEIN 9.2 gm/dL (6.2-8.1)
[2023-12-25 21:19] LABS: TSH w REFLEX 0.555 uIU/mL (0.350-4.940)
[2023-12-25 21:21] LABS: TROPONIN-I < 0.010 ng/mL (0.00-0.033)
[2023-12-25 21:28] VITALS: BP 11/70; PULSE 73
== END 2023-12-25 21:28 | disposition home or self-care (01) ==
LOC: COL.ER 19:26
PROVIDERS: Emergency Medicine
DX: R53.83 Other fatigue (principal); F17.200 Nicotine dependence, unspecified, uncomplicated
CPT/HCPCS: J7120

== ENCOUNTER 2024-03-23 08:20 | Outpatient (CLI) | payer MEDICAID ==
[~2024-03-23] VITALS: Ht 165.1 cm; Wt 75.2 kg
[2024-03-23 08:49] VITALS: BP 106/62; PULSE 86; TEMP 98.1
[2024-03-23] MEDS ORDERED: TUMS500 MG PO (08:57)
[2024-03-23] MEDS ORDERED: ADDERALL15 MG PO (08:57)
[2024-03-23] MEDS ORDERED: BENADRYL25 M2 PO (08:58)
[2024-03-23] MEDS ORDERED: FLEXERIL 1010 MG/TAB PO (08:58)
[2024-03-23] MEDS ORDERED: CLARITIN 1010 MG/TAB PO (09:05)
[2024-03-23] MEDS ORDERED: MULTIVITAMIN FO1 CAP PO (09:05)
[2024-03-23] MEDS ORDERED: MELATONIN5 M1 SL (09:07)
[2024-03-23] MEDS ORDERED: PROVERA 10MG10 MG PO (09:07)
[2024-03-23] MEDS ORDERED: MIRALAX PA17 GM/Dose PO (09:08)
[2024-03-23] MEDS ORDERED: ADDERALL XR15 MG PO (09:08)
[2024-03-23 10:15] VITALS: BP 108/68; PULSE 79
--- NOTE | 2024-03-23 10:24 | NUR ---
Rach is transferred back to express unit after Tilt Table Test for Dr. Flores and Dr. Wagner. Pt feeling okay, she did have some lightheadedness, mild nausea and some vision changes (like looking through static) while up, although toward end of upright portion of test she stated it was just hard to stay awake. PT awake and alert now with reg and unlabored resps. set up on monitor to record vitals q15, bedside report and handoff of care to Jatin BUTLER. Pt given some fluids and snack.
[2024-03-23 10:30] VITALS: BP 105/66; PULSE 80
[2024-03-23 10:45] VITALS: BP 109/65; PULSE 79
--- NOTE | 2024-03-23 11:26 | NUR ---
Pt rested comfortably in bed after return from procedure. Toone tray was provided to pt, as she had c/o some "upset stomach" upon return and felt like it may be because she was hungry. This is now resolved. Pt free of complaints. She is steady on feet up to restroom. IV DC'd, site wrapped with coban. She is assisted out to 's car by wheelchair.
== END 2024-03-23 11:26 | disposition home or self-care (01) ==
LOC: COL.CAR 08:20
DX: R55 Syncope and collapse (principal); R42 Dizziness and giddiness